=== PATIENT | male | born 1955 | race Caucasian/White ===

== ENCOUNTER 2017-05-17 11:24 | Observation (INO) | payer OTHER ==
[~2017-05-17] VITALS: Ht 177.8 cm; Wt 84.1 kg
--- NOTE | 2017-05-17 11:36 | ED GENERAL ADULT ---
History of Present Illness General Chief Complaint: General Adult Stated Complaint: RAPID RESPONSE Source: patient, EMS Exam Limitations: no limitations Vital Signs & Intake/Output Vital Signs & Intake/Output Vital Signs Date Time Temp Pulse Resp B/P B/P Pulse O2 O2 Flow FiO2 Mean Ox Delivery Rate 05/17 1502 97.8 68 16 122/72 98 Room Air 05/17 1255 68 15 112/60 98 Room Air Room Air 05/17 1208 Room Air Room Air 05/17 1126 97.6 70 15 106/70 97 Room Air Room Air Allergies Coded Allergies: Penicillins (Intermediate, RASH 05/17/17) Reconcile Medications Aspirin (Ecotrin*) 81 MG TABLET.DR 1 TAB PO DAILY HEART/BLOOD (Reported) Atorvastatin Calcium 80 MG TABLET 1 TAB PO QHS CHOLESTEROL (Reported) Carvedilol 12.5 MG TABLET 1 TAB PO BID HEART/BP (Reported) Clopidogrel Bisulfate (Clopidogrel) 75 MG TABLET 1 TAB PO DAILY BLOOD THINNER (Reported) Lisinopril 5 MG TABLET 1 TAB PO DAILY BP (Reported) Lorazepam 0.5 MG TABLET 1 TAB PO BID PRN ANXIETY (Reported) Metformin HCl 1,000 MG TABLET 0.5 TAB PO BID DM (Reported) Triage Note: PT BIBA FROM [facility] FOR ASYMPTOMATIC HYPOTENSION 60'S SYSTOLIC AFTER LIFTING WEIGHTS FOR THE FIRST TIME AT CARDIAC REHAB. PT OFFERS NO COMPLAINTS. BP 106/70 MANUALLY ON ARRIVAL. NSR 70'S ON ENTERPRISE APPLICATIONS MANAGER. DR. DUGGAN AT BEDSIDE FOR EVAL. Triage Nurses Notes Reviewed? yes Onset: Abrupt Duration: minute(s): (FEW) Timing: single episode today Injury Environment: CARDIAC REHAB Severity: mild No Modifying Factors: none HPI: This is a 61 year old male with history of AMI in January s/p cabgx4 at [facility] who was going to the gym at cardiac rehab who presented for hypotensive episode after doing arm weights for the first time. He has graduated from cardiac rehab and was just there to do his daily cardio on the bike but then they checked his blood pressure after the weights and was found to have a systolic bp of 60. No chest pain/sob/dizziness or lightheadedness. Per EMS his blood pressure was 80 systolic and now. Patient denies any symptoms over at cardiac rehab or in the ED. His family service caseworker is Dr. Agudelo at [facility]. Past History Travel History Traveled to [place] past 21 day No Medical History Any Pertinent Medical History? see below for history Neurological: CVA (2016) Cardiovascular: [place] (2017) Surgical History Surgical History: CABG Psychosocial History Tobacco Use: Quit >30 days ago ETOH Use: denies use Illicit Drug Use: denies illicit drug use Family History Hx Contributory? No Review of Systems Review of Systems Constitutional: Denies: chills, fever, malaise, weakness. EENTM: Reports: no symptoms. Respiratory: Denies: cough, short of breath, sputum production. Cardiovascular: Denies: chest pain, palpitations, peripheral edema, syncope. GI: Denies: abdominal pain. Genitourinary: Reports: no symptoms. Musculoskeletal: Reports: no symptoms. Skin: Reports: no symptoms. Neurological/Psychological: Denies: ataxia, confusion. Hematologic/Endocrine: Denies: bruising, bleeding. Immunologic/Allergic: Reports: no symptoms. All Other Systems: Reviewed and Negative Physical Exam Physical Exam General Appearance: alert, awake, mild distress, thin Head: atraumatic, normal appearance Eyes: Bilateral: normal appearance, PERRL, EOMI. Ears, Nose, Throat: normal pharynx, normal ENT inspection, hearing grossly normal Neck: normal inspection, supple, full range of motion Respiratory: normal breath sounds, chest non-tender, no respiratory distress Cardiovascular: regular rate/rhythm Peripheral Pulses: 2+ radial (R), 2+ radial (L) Gastrointestinal: normal bowel sounds, soft, non-tender Extremities: normal inspection, normal capillary refill, normal range of motion, no edema Neurologic/Psych: no motor/sensory deficits, awake, alert, oriented x 3, normal mood/affect Skin: intact, normal color, warm/dry Core Measures ACS in differential dx? Yes CVA/TIA Diagnosis: No Sepsis Present: No Sepsis Focused Exam Completed? No Progress Differential Diagnoses I considered the following diagnoses in my evaluation of the patient: [AMI, TAMPONADE, PE, VASOVAGAL EVENT, DYSRHYTHMIA] Plan of Care: Orders Procedure Date/time Status Heart Healthy Diet 05/17 L Complete Heart Healthy Diet 05/17 D Active TROPONIN LEVEL 05/17 1530 Active EKG 05/[address] in observation 05/17 1503 Active LACTIC ACID 05/17 1433 Complete ED Holding Orders 05/17 1432 Active Vital Signs 05/17 1426 Active Code Status 05/17 1426 Active EKG 05/17 1134 Active MISTAKE 05/17 1133 Active Telemetry/Injection Molding Technician 05/17 1133 Active TROPONIN LEVEL 05/17 1133 Complete LACTIC ACID 05/17 1133 Complete COMPREHENSIVE METABOLIC PANEL 05/17 1133 Complete CBC WITHOUT DIFFERENTIAL 05/17 1133 Complete Laboratory Tests 05/17/17 1456: Lactic Acid 1.6 05/17/17 1150: Anion Gap 12, Estimated GFR > 60, BUN/Creatinine Ratio 25.0, Glucose 293 H, Lactic Acid 2.3 H, Calcium 9.8, Total Bilirubin 0.4, AST 34, ALT 54, Alkaline Phosphatase 96, Troponin I < 0.01, Total Protein 6.5, Albumin 3.8, Globulin 2.7, Albumin/Globulin Ratio 1.4, CBC w Diff NO MAN DIFF REQ, RBC 4.28 L, MCV 89.6, MCH 30.7, MCHC 34.3, RDW 15.1 H, MPV 8.7, Gran % 72.1, Lymphocytes % 16.2 L, Monocytes % 5.7, Eosinophils % 5.5 H, Basophils % 0.5, Absolute Granulocytes 6.5, Absolute Lymphocytes 1.5, Absolute Monocytes 0.5, Absolute Eosinophils 0.5, Absolute Basophils 0 DR VITALE PAGED X 2. D/W DR PRADO RN RECRUITMENT FOR DR VITALE, RECOMMENDS OBSERVATION ON TELEMETRY IN LIGHT OF RECENT CABG. WILL OBTAIN RECORDS FROM STICKER ON OFFICE. PATIENT REMAINS ASYMPTOMATIC. D/W FAMILY MEMBER AT BEDSIDE. Initial ED EKG: NSR, T WAVE INVERSIONS III, AVF, ST DEPRESSION V4-V6 Departure Departure Time of Disposition: 1425 Disposition: STILL A PATIENT Condition: Stable Clinical Impression Primary Impression: Hypotension Referrals: Genny Rodriguez APRN (PCP/Family) Departure Forms: Customer Survey General Discharge Information Observation Note Spoke With: Edith DAVIS,W Catalino Physician Advisor Notified: LEDY HARRISON DO Place Patient In: Non-ED OBS Care Area Rationale for Observation: My rational for observation is as follows [TELE MONITOR, SERIAL EKG/TROPONIN]. Critical Care Note Critical Care Note Critical Care Time: non-applicable
[2017-05-17 11:57] LABS: ABSOLUTE BASOPHIL COUNT 0 /CUMM (0.0-0.2); ABSOLUTE EOSINOPHIL COUNT 0.5 /CUMM (0.0-0.7); ABSOLUTE GRANULOCYTE CT 6.5 /CUMM (1.4-6.5); ABSOLUTE LYMPH COUNT 1.5 /CUMM (1.2-3.4); ABSOLUTE MONOCYTE COUNT 0.5 /CUMM (0.10-0.60); BASOPHIL % 0.5 % (0.0-2.0); EOSINOPHIL % 5.5 % (0-5); GRANULOCYTE % 72.1 % (42.2-75.2); HEMATOCRIT 38.4 % (42-52); MEAN CORPUSCULAR HGB 30.7 PG (27.0-31.0); MEAN CORPUSCULAR HGB CONC 34.3 G/DL (33.0-37.0); MEAN CORPUSCULAR VOLUME 89.6 FL (80.0-94.0); MEAN PLATELET VOLUME 8.7 FL (7.4-10.4); PLATELET COUNT 239 /CUMM (130-400); RBC DISTRIBUTION WIDTH 15.1 % (11.5-14.5); RED BLOOD CELL CT 4.28 /CUMM (4.70-6.10)
--- NOTE | 2017-05-17 13:09 | RADIOLOGY REPORT ---
EXAMINATION: XR PORTABLE CHEST CLINICAL INFORMATION: Rule out CHF. COMPARISON: Chest x-rays dated 01/16/2017 and older exams dating back to 01/07/2017. TECHNIQUE: Portable semierect view of the chest was obtained. FINDINGS: The patient is status post median sternotomy. The cardiomediastinal silhouette is within normal limits in size. Lungs bilaterally are symmetrically expanded. There is a small nodule seen in the right midlung, unchanged dating back to 01/07/2017, favoring a benign etiology, such as a small granuloma. Previously seen bilateral small pleural effusions and bibasilar atelectasis have resolved. No focal consolidation, effusion or pneumothorax is seen. Bony structures are unremarkable. IMPRESSION: Stable small nodule in the right midlung, unchanged dating back to 01/16/2017, likely a small calcified granuloma. Otherwise unremarkable chest x-ray. No evidence of pulmonary edema.
[2017-05-17] MEDS ORDERED: ASPIRIN EC81 M1 PO (15:30)
[2017-05-17] MEDS ORDERED: ATORVASTATIN CA80 M1 PO (15:30)
[2017-05-17] MEDS ORDERED: FUROSEMIDE20 M1 PO (15:31)
[2017-05-17] MEDS ORDERED: CARVEDILOL12.5 M1 PO (15:31)
[2017-05-17] MEDS ORDERED: CLOPIDOGREL75 M1 PO (15:31)
[2017-05-17] MEDS ORDERED: LISINOPRIL5 M1 PO (15:31)
[2017-05-17] MEDS ORDERED: LORAZEPAM0.5 M1 PO (15:32)
[2017-05-17] MEDS ORDERED: METFORMIN HCL1000 M1 PO (15:33)
--- NOTE | 2017-05-17 18:52 | History & Physical ---
Yani DAVIS,Kenneth 05/17/17 3381: General Information and HPI MD Statement: I have seen and personally examined MARLYN BUCHANAN and documented this H&P. The patient is a 61 year old M who presented with a patient stated chief complaint of [low BP]. Source of Information: patient, old records Exam Limitations: no limitations History of Present Illness: Patient is a 61-year-old male with multiple medical problems BIBA from the cardiac rehabilitation center, after he found to have very low blood pressure. According to the patient he had TX in December 2016 followed by CABG 4 in January 2017 which was complicated by paroxysmal atrial fibrillation and was on Coumadin which was stopped around 1 month ago. He was undergoing cardiac rehabilitation and was recently graduated. In the morning he went to cardiac rehabilitation center and he did his electrical exercises, did cycling and lifted moderated weight 12 times. After his exercises he set down and get rested. He was totally asymptomatic. The nurse took his blood pressure in the left arm and according to him blood pressure was only 60. BP was checked 2 or 3 times, it was only 60 though he was asymptomatic. Sugar was checked which was 129. Rapid response was called and he was sent [facility] for further evaluation and management. I at the time of admission his blood pressure was 106 /70. It was decided to give him 2 50 cc of normal saline. And blood workup was done. She denies for any fever, chills, chest pain, shortness of breath, headache, dizziness, nausea, vomiting, fall, history of long travels. Past medical history - History of Tourette's syndrome Hypertension Hyperlipidemia Diabetes since 5 previous past HbA1c was 8 History of stroke June 2015 History of vertigo History of non-ST segment elevation TX January 2017 followed by CABG 4, course was complicated by paroxysmal atrial fibrillation was on Coumadin which he stopped a month ago. Primary care provider - Dr. Jessica Rodriguez at [facility] -Dr. 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 Quit alcohol 14 years ago, denies smoking and illicit drug abuse. Family historybrother with history of CABG, father had cancer of colon, Allergies -penicillin leads to rash Allergies/Medications Allergies: Coded Allergies: Penicillins (Intermediate, RASH 05/17/17) Home Med list Aspirin (Ecotrin*) 81 MG TABLET. 1 TAB PO DAILY HEART/BLOOD (Reported) Atorvastatin Calcium 80 MG TABLET 1 TAB PO QHS CHOLESTEROL (Reported) Carvedilol 12.5 MG TABLET 1 TAB PO BID HEART/BP (Reported) Clopidogrel Bisulfate (Clopidogrel) 75 MG TABLET 1 TAB PO DAILY BLOOD THINNER (Reported) Lisinopril 5 MG TABLET 1 TAB PO DAILY BP (Reported) Lorazepam 0.5 MG TABLET 1 TAB PO BID PRN ANXIETY (Reported) Metformin HCl 1,000 MG TABLET 0.5 TAB PO BID DM (Reported) Observation Initial Note - I have personally examined MARLYN BUCHANAN on 05/17/17 at 1852. The disposition of MARLYN BUCHANAN is uncertain at this time and before a determination can be made, he requires a period of observation for the following reasons [low BP] Past History Travel History Traveled to [place] past 21 day No Medical History Neurological: CVA (2016) Cardiovascular: [place] (2017) Surgical History Surgical History: CABG Past Family/Social History Psychosocial History ETOH Use: denies use Illicit Drug Use: denies illicit drug use Review of Systems Review of Systems Constitutional: Denies: no symptoms. Exam & Diagnostic Data Last 24 Hrs of Vital Signs/I&O Vital Signs Date Time Temp Pulse Resp B/P B/P Pulse O2 O2 Flow FiO2 Mean Ox Delivery Rate 05/17 2008 142/78 05/17 1926 97.9 68 20 160/80 98 Room Air 05/17 1705 97.3 76 18 120/70 98 05/17 1502 97.8 68 16 122/72 98 Room Air 05/17 1255 68 15 112/60 98 Room Air Room Air 05/17 1208 Room Air Room Air 05/17 1126 97.6 70 15 106/70 97 Room Air Room Air Intake & Output 05/17 1600 05/17 0800 03 0000 Intake Total 0 Output Total Balance 0 Intake, Oral 0 Patient 84.822 kg Weight Weight Reported by Patient Measurement Method Physical Exam General Appearance Alert, Oriented X3, Cooperative, No Acute Distress Neck Supple, No JVD Cardiovascular Normal S1, Normal S2 Lungs Clear to Auscultation, Normal Air Movement Abdomen Soft, No Tenderness Extremities No Clubbing, No Cyanosis, No Edema Vascular Normal Pulses, Pulses Symmetrical Last 24 Hrs of Labs/Ady: Laboratory Tests 03/08/18 1945: Troponin I Pending 05/17/17 1539: Troponin I < 0.01 05/17/17 1456: Lactic Acid 1.6 05/17/17 1150: Anion Gap 12, Estimated GFR > 60, BUN/Creatinine Ratio 25.0, Glucose 293 H, Lactic Acid 2.3 H, Calcium 9.8, Total Bilirubin 0.4, AST 34, ALT 54, Alkaline Phosphatase 96, Troponin I < 0.01, Total Protein 6.5, Albumin 3.8, Globulin 2.7, Albumin/Globulin Ratio 1.4, CBC w Diff NO MAN DIFF REQ, RBC 4.28 L, MCV 89.6, MCH 30.7, MCHC 34.3, RDW 15.1 H, MPV 8.7, Gran % 72.1, Lymphocytes % 16.2 L, Monocytes % 5.7, Eosinophils % 5.5 H, Basophils % 0.5, Absolute Granulocytes 6.5, Absolute Lymphocytes 1.5, Absolute Monocytes 0.5, Absolute Eosinophils 0.5, Absolute Basophils 0 Diagnostic Data EKG Results EKG heart rate 71, inverted T waves in lead II, III, aVF, ST segment depression in lead II, V4- V6 CXR Results Stable small nodule in the right midlung, unchanged dating back to 01/16/2017, likely a small calcified granuloma. Otherwise unremarkable chest x-ray. No evidence of pulmonary edema. Assessment/Plan Assessment: Patient is a 61-year-old male with multiple medical problems BIBA from the cardiac rehabilitation [place], after he found to have very low blood pressure. Blood workup showed -hemoglobin 13.2, hematocrit 38.4, platelet count 239, lymphocytes 16.2, eosinophil 5.5, sodium 140, potassium 5.3, BUN 30, creatinine 1.2, glucose 293, lactic acid 2.31.6,Calcium 9.8, total bilirubin 0.4, AST 34, ALT 54, alkaline phosphatase 96, troponin 0 0.01, 0.01, total protein 6.5, albumin 2.5, globulin 2.7, Chest x-ray -Stable small nodule in the right midlung, unchanged dating back to 01/16/2017, likely a small calcified granuloma. Otherwise unremarkable chest x-ray. No evidence of pulmonary edema. Assesment and plan - Low BP of unknown etiology - * Orthostatic was lying 98/52;Sitting 106/68; Standing 98/54. * He was given IV fluids in ED -250cc, f/b BP of 122/72. * We will observe patient in telemetry * We will hold lasix, Lisinopril and watch for BP * We will follow echo to r/o tamponade as patient had recent CABG. Type 2 diabetes - * Patient does not want to have insulin shots * We will continue tablet metformin 500 mg twice daily * We will recheck HbA1c, and possibly, increase the dose of metformin. Hyperkalemia * Hold lisinopril * Will recheck tmr Lactic acidosis -recovered, possibly dehydration and Metformin Hypereosinophilia - * He had eosinophilia in the past, now it is improving. He needs to follow-up with his PCP for further evaluation and management. Diet -carbohydrate type II diet DVT prophylaxis-ALPs CODE STATUS -full code As Ranked By This Provider Problem List: 1. Hypotension 2. S/P CABG x 4 3. Diabetes type 2, uncontrolled 4. Hypertension 5. Hyperlipidemia Core Measures/Misc (11/26) Acute Coronary Syndrome ACS Diagnosis: No Congestive Heart Failure Congestive Heart Failure Diagnosis No Cerebrovascular Accident CVA/TIA Diagnosis: No VTE (View Protocol) VTE Risk Factors Age>40 No Mechanical VTE Prophylaxis d/t N/A MechProphylax Ordered No VTE Pharm Prophylaxis d/t NA PharmProphylax ordered Sepsis (View protocol) Sepsis Present: No Norman Kline MD 05/17/17 0520: Past Family/Social History Family History Relations & Conditions if any BROTHER Coronary artery disease Attending MD Review Statement Attending Statement Attending MD Statement: examined this patient, discuss w/resident/PA/FINISH MOLDER, agreed w/resident/PA/FINISH MOLDER, discussed with family, reviewed EMR data (avail), discussed with nursing, reviewed images, amended to note Attending Assessment/Plan: The patient is a 61-year-old male with history of CAD, status post CABG in December 2016 at [facility]. The hospital course was complicate by paroxysmal atrial fibrillation, for which she was treated with warfarin which was stopped 1 month ago. He completed cardiac rehab recently, and was continuing exercise at the cardiac rehab center. After completion of exercise with cycling and weight lifting the nurse at cardiac rehab checked his blood pressure. The systolic blood pressure was found to be in the 60s. The patient was completely asymptomatic. The patient was sent to the emergency department. Initial blood pressure in the emergency department was 106/70. He was treated with 250 cc of normal saline. He continues to be feeling well. No chest pain. No shortness of breath. No syncope. No lightheadedness or dizziness. No nausea or vomiting. No diaphoresis. His high school science tutor is Dr. Glass at [facility]. Review of systems: No fever. No chills. No rash. No tremor. No melena. All other systems were reviewed, and were noted to be negative. Physical examination: Gen: The patient is in no acute distress HEENT: Normal nose, ears, and oropharynx. Pupils equal bilaterally. Conjunctiva normal. Neck: Supple with no JVD, no masses, and no thyromegaly Lungs: Clear to auscultation with normal respiratory effort Heart: RRR, S1, S2, no murmurs. No peripheral edema, 2+ pulses in the lower extremities bilaterally Abdomen: Soft, nontender, no masses. No hepatomegaly. No splenomegaly Extremities: No clubbing or cyanosis. Normal muscle strength in the upper and lower extremities Skin: Normal skin turgor with no skin ulcers or lesions noted. Neuro: Cranial nerves intact. Sensation intact Psych: Alert and oriented x 3 with appropriate affect EKG tracing is independently reviewed, and reveals NSR at 71, LAE, LAD, nonspec T abnormality, Qtc 483 CXR: Stable small nodule in the right midlung, unchanged dating back to 01/16/2017, likely a small calcified granuloma. Otherwise unremarkable chest x-ray. No evidence of pulmonary edema. Assessment: 1. CAD, status post CABG 2. Type 2 diabetes mellitus 3. Hypokalemia 4. Hypotension, improved with IV fluid. Possible volume depletion. Recommendations: Recommendations: * Place on observation * Monitor on telemetry * Check troponin * Echocardiogram * Likely ready for discharge tomorrow if stable *
[2017-05-17 19:26] VITALS: BP 160/80
[2017-05-17 20:09] VITALS: BP 142/78
[2017-05-18 06:59] VITALS: BP 94/76
--- NOTE | 2017-05-18 07:26 | PN- Housestaff ---
Subjective Follow-up For: 1. Hypotension 2. Hx of DM, 3. Hyperkalemia Tele-Events Since Last Visit: Sinus rhythm Heart rate 60-75 Subjective: Patient resting comfortably in with, denies any active complaints. Has been able to walk around without getting any chest pain, lightheadedness/ dizziness or shortness of breath. Review of Systems Constitutional: Reports: no symptoms. EENTM: Reports: no symptoms. Cardiovascular: Reports: no symptoms. Respiratory: Reports: no symptoms. Gastrointestinal: Reports: no symptoms. Genitourinary: Reports: no symptoms. Musculoskeletal: Reports: no symptoms. Skin: Reports: no symptoms. Neurological/Psychological: Reports: no symptoms. Hematologic/Endocrine: Reports: no symptoms. Immunologic/Allergic: Reports: no symptoms. Objective Last 24 Hrs of Vital Signs/I&O Vital Signs Date Time Temp Pulse Resp B/P B/P Pulse O2 O2 Flow FiO2 Mean Ox Delivery Rate 05/18 1227 118/54 05/18 0807 80 96/78 05/18 0659 97.6 73 16 94/76 97 Room Air 05/17 2133 68 142/78 05/17 2009 142/78 05/17 1926 97.9 68 20 160/80 98 Room Air 05/17 1705 97.3 76 18 120/70 98 05/17 1502 97.8 68 16 122/72 98 Room Air Intake & Output 05/18 1600 05/18 0800 05/18 0000 Intake Total 120 200 Output Total Balance 120 200 Intake, IV Intake, Oral 120 200 Output, Urine Patient 185 lb Weight Weight Bed scale Measurement Method Physical Exam General Appearance: Alert, Oriented X3, Cooperative, No Acute Distress Skin: No Rashes, No Breakdown Cardiovascular: Regular Rate, Normal S1, Normal S2 Lungs: Clear to Auscultation, Normal Air Movement Abdomen: Normal Bowel Sounds, Soft, No Tenderness Extremities: No Clubbing, No Cyanosis, No Edema, Normal Pulses Current Medications: Current Medications Sig/Nate Start time Last Medication Dose Route Stop Time Status Admin Aspirin Buffered 81 MG DAILY 05/18 999 AC 05/18 PO 806 Atorvastatin Calcium 80 MG AT BEDTIME 05/17 2199 AC 05/17 PO 2133 Carvedilol 12.5 MG BID 05/17 2199 AC 05/18 PO 806 Clopidogrel Bisulfate 75 MG DAILY 05/18 1000 AC 05/18 PO 0807 Furosemide 20 MG DAILY 03/09 1000 CAN PO Lisinopril 5 MG DAILY 05/17 1818 DC PO Lorazepam 0.5 MG BID PRN 05/17 1830 AC 05/17 PO 05/24 1829 2137 Metformin HCl 500 MG BID 05/17 2200 AC 05/18 PO 0807 Last 24 Hrs of Lab/Ady Results Last 24 Hrs of Labs/Mics: Laboratory Tests 05/18/17 0621: Anion Gap 10, Estimated GFR > 60, BUN/Creatinine Ratio 25.6 H 05/17/17 1945: Troponin I < 0.01 05/17/17 1539: Troponin I < 0.01 05/17/17 1456: Lactic Acid 1.6 Assessment/Plan Assessment: Patient is a 61-year-old male with multiple medical problems BIBA from the cardiac rehabilitation center, after he found to have very low blood pressure. Assesment and plan - 1. Hypotension 2. Hx of DM, 3. Hyperkalemia - resolved - Continue to observe on telemetry floor. - Hypertension improved with IV fluids, likely secondary to dehydration. ?? Temponade, less likely. - Continue to hold Lasix and lisinopril. Will resume Lisinopril on discharge. - Echocardiogram pending. - Appreciate cardiology recommendations. - Continue metformin 500 mg every 12 for diabetes. A1c 9.4. Follow-up with PCP to adjust diabetic medications. - Hyperkalemia and lactic acidosis resolved. - Continue rest of the home medications. DVT prophylaxis; [employer] is full code Problem List: 1. Hypotension 2. S/P CABG x 4 Pain Ratin Pain Location: None Pain Goal: Remain pain free Pain Plan: None Tomorrow's Labs & Rationales: None
--- NOTE | 2017-05-18 11:28 | Patient Discharge Instructions ---
Discharge Instructions General Discharge Information You were seen/treated for: Hypotension Watch for these problems: Please return to the ER in case of any lightheadedness/dizziness, Shortness of breath, chest pain or Palpitations. Special Instructions: Please follow up with your Cradiologist within a week after discharge. Diet Continue normal diet: Yes Recommended Diet: Heart Healthy Activity Full Activity/No Limits: Yes Acute Coronary Syndrome Inclusion Criteria At DC or during hospital stay patient has or had the following: ACS DIAGNOSIS No Discharge Core Measures Meds if any: Prescribed or Continued at Discharge Meds if any: NOT Prescribed or Continued at Discharge Congestive Heart Failure Inclusion Criteria At DC or during hospital stay patient has or had the following: CHF DIAGNOSIS No Discharge Core Measures Meds if any: Prescribed or Continued at Discharge Meds if any: NOT Prescribed or Continued at Discharge Cerebrovascular accident Inclusion Criteria At DC or during hospital stay patient has or had the following: CVA/TIA Diagnosis No Discharge Core Measures Meds if any: Prescribed or Continued at Discharge Meds if any: NOT Prescribed or Continued at Discharge Venous thromboembolism Inclusion Criteria VTE Diagnosis No VTE Type NONE VTE Confirmed by (Test) NONE Discharge Core Measures - Per Current guidelines, there needs to be overlap - treatment for the first 5 days of Warfarin therapy. - If discharged on Warfarin prior to 5 days of - overlap therapy, the patient will need to be - assessed for post discharge needs including - *Post discharge parental anticoagulation - *Warfarin and/or parental anticoagulation education - *Follow up date to check INR post discharge At least 5 days overlap therapy as Inpatient No Meds if any: Prescribed or Continued at Discharge Note: Overlap Therapy is Warfarin and Anticoagulant Meds if any: NOT Prescribed or Continued at Discharge
[2017-05-18 12:27] VITALS: BP 118/54
--- NOTE | 2017-05-18 15:12 | PN- Cardiology ---
Subjective Subjective: The patient is doing well today with no symptoms. His blood pressure has improved. Objective Vital Signs and I&Os Vital Signs Date Time Temp Pulse Resp B/P B/P Pulse O2 O2 Flow FiO2 Mean Ox Delivery Rate 05/18 1227 118/54 05/18 0807 80 96/78 05/18 0659 97.6 73 16 94/76 97 Room Air 05/17 2133 68 142/78 05/17 2009 142/78 05/17 1926 97.9 68 20 160/80 98 Room Air 05/17 1705 97.3 76 18 120/70 98 Intake & Output 05/18 1600 05/18 0000 05/17 1600 05/17 0000 Intake Total 400 120 200 0 Output Total Balance 400 120 200 0 Intake, IV Intake, Oral 400 120 200 0 Output, Urine Patient 185 lb 187 lb Weight Weight Bed scale Reported by Patient Measurement Method Current Medications: Current Medications Sig/Nate Start time Last Medication Dose Route Stop Time Status Admin Aspirin Buffered 81 MG DAILY 05/18 1000 AC 05/18 PO 08 Atorvastatin Calcium 80 MG AT BEDTIME 05/17 2199 AC 05/17 PO 213 Carvedilol 12.5 MG BID 05/17 2200 AC 05/18 PO 0807 Clopidogrel Bisulfate 75 MG DAILY 05/18 1000 AC 05/18 PO 0807 Furosemide 20 MG DAILY 05/18 1000 CAN PO Lisinopril 5 MG DAILY 05/17 1818 DC PO Lorazepam 0.5 MG BID PRN 05/17 1830 AC 05/17 PO 05/24 1829 2137 Metformin HCl 500 MG BID 05/17 220 AC 05/18 PO 0807 Results Last 48 Hrs of Labs/Mics: Laboratory Tests 05/18/17 0621: Anion Gap 10, Estimated GFR > 60, BUN/Creatinine Ratio 25.6 H 05/17/17 1945: Troponin I < 0.01 05/17/17 1539: Troponin I < 0.01 05/17/17 1456: Lactic Acid 1.6 05/17/17 1150: Anion Gap 12, Estimated GFR > 60, BUN/Creatinine Ratio 25.0, Glucose 293 H, Hemoglobin A1c 9.4 H, Lactic Acid 2.3 H, Calcium 9.8, Total Bilirubin 0.4, AST 34, ALT 54, Alkaline Phosphatase 96, Troponin I < 0.01, Total Protein 6.5, Albumin 3.8, Globulin 2.7, Albumin/Globulin Ratio 1.4, CBC w Diff NO MAN DIFF REQ, RBC 4.28 L, MCV 89.6, MCH 30.7, MCHC 34.3, RDW 15.1 H, MPV 8.7, Gran % 72.1, Lymphocytes % 16.2 L, Monocytes % 5.7, Eosinophils % 5.5 H, Basophils % 0.5, Absolute Granulocytes 6.5, Absolute Lymphocytes 1.5, Absolute Monocytes 0.5 , Absolute Eosinophils 0.5, Absolute Basophils 0 Assessment/Plan Assessment/Plan Assessment: 1. Hypertension 2. Coronary artery disease with recent bypass surgery 4 3. Hypertension 4. Diabetes 5. Hyperlipidemia Operations: -The patient is currently much improved today. -Blood pressure improved, stable with ambulation -For now, the plan will be to discharge patient home today. We will discontinue his Lasix. His echocardiogram shows that his left ventricular function has, if anything, improved slightly. -Continue other cardiac medications. -Follow-up with regular machinery mechanic on Sunday for further medication changes. Continue telemetry? No
--- NOTE | 2017-05-19 07:42 | ECHOCARDIOGRAM REPORT ---
MARLYN BUCHANAN Age: 61 : 1955 Gender: M Exam Date: 05/18/2017 08:29 Exam Location: [place] Ht (in): 70 Wt (lb): 185 BSA: 2.05 BP: 94 / 76 Ordering Physician: Suzan Lomeli MD Referring Physician: Suzan Lomeli MD Technologist: Hang Cordova [facility] Room Number: 182-1 Indications: HYPOTENSION Rhythm: Sinus Technical Quality: Good FINDINGS Left Ventricle Normal size left ventricle. Mildly abnormal left ventricular ejection fraction estimated at 45-50%. Hypokinetic inferior wall. Abnormal septal motion. Right Ventricle Normal right ventricular size and function. Right Atrium Normal right atrial size. Left Atrium Left atrial size at the upper limits of normal. Mitral Valve Mitral valve thickened. Trace to mild mitral regurgitation. Aortic Valve Trileaflet aortic valve. Diffuse thickening (sclerosis) of the aortic valve cusps without reduced excursion. No aortic stenosis. No aortic regurgitation. Tricuspid Valve Tricuspid valve not well visualized, grossly normal. Mild tricuspid regurgitation. Right ventricular systolic pressure estimated at 24 mmHg. Pulmonic Valve Structurally normal pulmonic valve. Pericardium No pericardial effusion. Great Vessels Normal size aortic root and proximal ascending aorta. CONCLUSIONS 1. Minimal to mild aortic sclerosis is present with no valvular stenosis or insufficiency. 2. Mitral leaflet thickening is present with minimal to mild mitral insufficiency. 3. There is no significant pericardial fluid identified 4. The left ventricular chamber size is normal. Mild concentric hypertrophy is present. There is mild global hypokinesia which is slightly worse in the inferoposterior segment. Abnormal septal motion is present. The ejection fraction is approximately 45-50%. 5. Mild tricuspid insufficiency is present with no evidence of pulmonary hypertension. 6. No prior study was available for comparison. Nilda Sharma M.D. (Electronically Signed) Final Date: 19 May 2017 07:42 MEASUREMENTS (Male / Female) Normal Values 2D ECHO LV Diastolic Diameter PLAX 5.3 cm 4.2 - 5.9 / 3.9 - 5.3 cm LV Systolic Diameter PLAX 4.1 cm 2.1 - 4.0 cm LV Fractional Shortening PLAX 22.6 % 25 - 46 % LV Ejection Fraction 2D Teich 45.2 % IVS Diastolic Thickness 1.3 cm LVPW Diastolic Thickness 1.2 cm LV Relative Wall Thickness 0.5 RV Internal Dim ED PLAX 3.0 cm 1.9 - 3.8 cm LVOT Diameter 1.8 cm LA Systolic Diameter LX 3.7 cm 3.0 - 4.0 / 2.7 - 3.8 cm LA Volume 37.0 cm 18 - 58 / 22 - 52 cm Ascending Aorta Diameter 3.0 cm DOPPLER AV Peak Velocity 135.0 cm/s AV Peak Gradient 7.3 mmHg AV Mean Velocity 87.7 cm/s AV Mean Gradient 4.0 mmHg AV Velocity Time Integral 31.1 cm LVOT Peak Velocity 75.9 cm/s LVOT Peak Gradient 2.3 mmHg LVOT Mean Velocity 45.5 cm/s LVOT Mean Gradient 1.0 mmHg LVOT Velocity Time Integral 19.5 cm LVOT Stroke Volume 49.6 cm AV Area Cont Eq vti 1.6 cm AV Area Cont Eq pk 1.4 cm MV Peak Velocity 85.1 cm/s MV Peak Gradient 2.9 mmHg MV Mean Velocity 52.5 cm/s MV Mean Gradient 1.0 mmHg Mitral E Point Velocity 54.8 cm/s Mitral A Point Velocity 59.2 cm/s Mitral E to A Ratio 0.9 MV PHT Velocity 76.0 cm/s MV Deceleration [place] 203.0 cm/s MV Pressure Half Time 112.3 ms MV Area PHT 2.0 cm MV Deceleration Time 437.0 ms TR Peak Velocity 229.0 cm/s TR Peak Gradient 21.0 mmHg Right Atrial Pressure 5.0 mmHg Pulmonary Artery Systolic Pressu 26.0 mmHg Right Ventricular Systolic Press 26.0 mmHg PV Peak Velocity 109.0 cm/s PV Peak Gradient 4.8 mmHg PV Mean Velocity 68.3 cm/s PV Mean Gradient 2.0 mmHg PV Velocity Time Integral 22.0 cm
== END 2017-05-18 15:15 ==
LOC: ERH 11:24 → 1NO 15:03 → ERHI 15:03 → 1NO 15:03 → ENRESERV 16:44 → ENTRNSPT 18:27 → CMPTRNSPT 18:54 → 1NO 19:14 → ENPENDDIS 05-18 13:57 → ENTRNSPT 05-18 15:10 → EDTRNSPT 05-18 15:13 → EDTRNSPTSTS 05-18 15:13 → 1NO 05-18 15:15 → CMPTRNSPT 05-18 15:28
PROVIDERS: Emergency Medicine
DX: I95.9 Hypotension, unspecified (principal); I25.2 Old myocardial infarction; D72.1 Eosinophilia; Z95.1 Presence of aortocoronary bypass graft; I48.0 Paroxysmal atrial fibrillation; Z79.01 Long term (current) use of anticoagulants; F95.2 Tourette's disorder; I10 Essential (primary) hypertension; E78.5 Hyperlipidemia, unspecified; E11.9 Type 2 diabetes mellitus without complications; Z79.84 Long term (current) use of oral hypoglycemic drugs; Z86.73 Personal history of transient ischemic attack (TIA), and cerebral infarction without residual deficits; R42 Dizziness and giddiness; Z79.82 Long term (current) use of aspirin; E87.5 Hyperkalemia; E87.2 Acidosis
CPT/HCPCS: 6020; 36415; 36592; 71045; 82436; 93005; 93010; 93306; 96360; G0378; J7040